=== PATIENT | male | born 1975 | race Hispanic/Latino ===

== ENCOUNTER 2022-05-04 08:39 | Day surgery (SDC) | payer BC ==
[2022-05-02 14:01] VITALS: BMI 34.1
[2022-05-04] MEDS ORDERED: PROPOFOL 40 ML ONE (12:38)
[2022-05-04] MEDS ORDERED: PROPOFOL 20 ML ONE (12:50)
== END 2022-05-04 13:31 | disposition home or self-care (01) ==
LOC: CSHSDC 08:39
PROVIDERS: ATTEND Internal Medicine Gastroenterology
PROC: 0DJD8ZZ Inspection of Lower Intestinal Tract, Via Natural or Artificial Opening Endoscopic (ICD-10-PCS; principal; 2022-05-04)
DX: Z12.11 Encounter for screening for malignant neoplasm of colon (principal); K21.9 Gastro-esophageal reflux disease without esophagitis; E78.5 Hyperlipidemia, unspecified; F17.210 Nicotine dependence, cigarettes, uncomplicated; K64.9 Unspecified hemorrhoids; E66.9 Obesity, unspecified; Z68.34 Body mass index [BMI] 34.0-34.9, adult
CPT/HCPCS: J2704